=== PATIENT | female | born 1940 | race Caucasian/White ===

== ENCOUNTER 2017-07-31 08:02 | Inpatient (IN) | payer MEDICARE ==
[2017-07-29 10:28] LABS: BASOPHILS % (AUTO) 0.5 % (0-1); EOSINOPHILS # (AUTO) 0.2 X10'3 (0-0.9); EOSINOPHILS % (AUTO) 1.9 % (0-6); LYMPHOCYTES % (AUTO) 21.8 % (21-51); MEAN CORPUSCULAR HEMOGLOBIN 33.1 PG (27.0-31.0); MEAN CORPUSCULAR HGB CONC 34.5 % (33.0-36.5); MEAN CORPUSCULAR VOLUME 95.9 FL (78-98); MEAN PLATELET VOLUME 8.1 FL (7.4-10.4); MONOCYTES # (AUTO) 0.8 X10'3 (0-0.9); MONOCYTES % (AUTO) 8.5 % (2-12); NEUTROPHILS # (AUTO) 6.1 X10'3 (1.8-7.7); NEUTROPHILS % (AUTO) 67.3 % (42-75); PRE OP HEMATOCRIT 38.8 % (35.0-45.0); PRE OP HEMOGLOBIN 13.4 g/dL (12.0-16.0); PRE OP PLATELET COUNT 270 X10'3 (140-440); RED BLOOD COUNT 4.05 X10'6 (4.20-5.60); RED CELL DISTRIBUTION WIDTH 14.2 % (11.5-14.5)
[2017-07-29 10:33] LABS: CLARITY,URINE Clear (Clear); COLOR,URINE Yellow (Yellow); GLUCOSE, URINE Negative (Neg); KETONES,URINE Negative (Neg); LEUKOCYTE ESTERASE ,URINE Negative (Neg); NITRITES, URINE Negative (Neg); OCCULT BLOOD,URINE Negative (Neg); PROTEIN,URINE Negative (Neg); UROBILINOGEN,URINE 0.2 E.U/dL (0.2-1.0)
[2017-07-29 10:36] LABS: UA COLLECTION TYPE CLN CATCH MIDSTREAM
[2017-07-29 10:37] LABS: PRE OP INR 0.9 INR; PRE OP PROTIME 9.5 SECONDS (9.0-12.0)
[2017-07-29 10:44] LABS: ALBUMIN 3.5 G/DL (3.4-5.0); ALBUMIN/GLOBULIN RATIO 0.9 (1.1-1.5); ALKALINE PHOSPHATASE 77 IU/L (46-116); BLOOD UREA NITROGEN 16 MG/DL (7-18); BUN/CREATININE RATIO 14.8 (6.6-38.0); CALCIUM 9.3 MG/DL (8.5-10.1); CHLORIDE 102 MMOL/L (99-107); CREATININE 1.08 MG/DL (0.40-0.90); PRE OP ALT 22 U/L (30-65); PRE OP ANION GAP 9 (8-16); PRE OP AST 24 U/L (10-37); PRE OP BILIRUB, TOTAL 0.2 MG/DL (0.0-1.0); PRE OP GLUCOSE 92 MG/DL (70-104); PRE OP POTASSIUM 3.4 MMOL/L (3.4-5.1); PRE OP SODIUM 140 MMOL/L (135-145); TOTAL CARBON DIOXIDE 28.6 MMOL/L (24-32); TOTAL PROTEIN 7.2 G/DL (6.4-8.2); eGFR 49 ML/MIN
[2017-07-29 10:52] LABS: HEMOGLOBIN A1C 5.1 % (4.5-6.2)
[2017-07-31] VITALS (12 sets, daily range): BP systolic 80–140; BP diastolic 40–68
[~2017-07-31] VITALS: Ht 157.5 cm; Wt 52.8 kg
[2017-07-31] MEDS: mupirocin 2% ointment 22GM TP SCH ×2 (08:00→10:25)
[~2017-07-31 08:02] MED LIST: ALPR-624 PO; AMLO-93 PO; BIOT1TAB7 PO; FOLI0.4T2 PO; LACT1CAP65 PO; LORazepam 2 mg/ml vial IV ONE; MULT-38 PO; NITR0.4T48 SL; OMEG-15 PO; PRIMROSE PO; TRAM50TA2 PO; TURM500C4 PO; VANCOMYCIN INJ 1000 MG in NORMAL SALINE 250ml IV.SOLN IV ONE; cefazolin/dext.iso 2gm/50ml 50 ML IV ONE; dextrose 50%-water 50ml dispensing syringe IV PRN; famotidine 20mg tablet PO ONE; insulin regular, human 100 UNITS in normal saline 100ml IV soln 99 ML IV SCH; metoprolol tartrate 12.5mg (1/2 tablet) PO ONE; ringers solution, lacted 1,000 ML IV SCH
[2017-07-31] MEDS ORDERED: LORazepam 2 mg/ml vial ONE (09:53)
[2017-07-31] MEDS ORDERED: LIDOcaine 1% (10mg/ml) 2ml vial ONE (10:16)
[2017-07-31] MEDS ORDERED: SUFENTANIL CITRATE 50 MCG/ML 2ml ampule IV ONE (12:13)
[2017-07-31] MEDS ORDERED: protamine sulf. 10mg/ml inj. IV ONE (12:15)
[2017-07-31] MEDS ORDERED: NORepinephrine 1 mg/ml inj IV ONE (12:15)
[2017-07-31] MEDS ORDERED: nitroGLYCERIN in D5W 50mg/250ml (Tridil) infusion IV ONE (12:15)
[2017-07-31] MEDS ORDERED: isoflurane 100ml inhalation liquid IH ONE (12:15)
[2017-07-31] MEDS ORDERED: DOPamine/D5W 400mg/250ml bag IV ONE (12:15)
[2017-07-31] MEDS ORDERED: rocuronium 10mg/ml inj IV ONE (12:18)
[2017-07-31] MEDS ORDERED: papaverine 30 mg/ml 2ml inj. IA ONE (13:22)
[2017-07-31] MEDS ORDERED: heparin 10,000 units/1 ML INJ IJ ONE (13:23)
[2017-07-31 13:26] LABS: ABG BASE EXCESS -0.6 mmol/L (-2.0-3.0); ABG HCO3 23.7 mmol/L (22.0-26.0); ABG OXYGEN SATURATION 99.3 % (95-98); ABG PCO2 37.4 mmHg (35.0-45.0); ABG PH 7.419 (7.350-7.450); ABG PO2 234.7 mmHg (60.0-100.0); CL (ABG) 105 mmol/L (99-107); FCOHb 0.1 % (0.5-1.5); FO2Hb 99.2 % (94-100); GLUCOSE (ABG) 93 mg/dl (70-105); IONIZED CA (ABG) 1.16 mmol/L (1.03-1.32); K (ABG) 3.5 mmol/L (3.3-5.1); NA (ABG) 136 mmol/L (135-145); TOTAL HEMOGLOBIN 11.8 G/dl (12.0-16.0)
[2017-07-31] MEDS ORDERED: ipratropium/albuterol 3ml nebule IH PRN (13:35)
[2017-07-31 14:21] LABS: ABG HCO3 22.5 mmol/L (22.0-26.0); ABG OXYGEN SATURATION 99.5 % (95-98); ABG PCO2 32.5 mmHg (35.0-45.0); ABG PH 7.459 (7.350-7.450); ABG PO2 394.2 mmHg (60.0-100.0); CL (ABG) 103 mmol/L (99-107); FCOHb 0.7 % (0.5-1.5); FMetHb 0.3 % (0.3-1.12); FO2Hb 98.5 % (94-100); GLUCOSE (ABG) 105 mg/dl (70-105); IONIZED CA (ABG) 1.04 mmol/L (1.03-1.32); K (ABG) 5.1 mmol/L (3.3-5.1); NA (ABG) 133 mmol/L (135-145); TOTAL HEMOGLOBIN 7.9 G/dl (12.0-16.0)
[2017-07-31 14:36] LABS: ABG BASE EXCESS VENOUS 0.1 mmol/L; ABG HCO3 VENOUS 24.2 mmol/L; ABG PCO2 VENOUS 36.8 mmHg; ABG PO2 VENOUS 50.1 mmHg; CL (ABG) 103 mmol/L (99-107); FCOHb VENOUS 0.9 %; FHHb VENOUS 12.6 %; FMetHb VENOUS 0.3 %; FO2Hb VENOUS 86.2 %; GLUCOSE (ABG) 111 mg/dl (70-105); IONIZED CA (ABG) 1.04 mmol/L (1.03-1.32); NA (ABG) 135 mmol/L (135-145); TOTAL HEMOGLOBIN 7.8 G/dl (12.0-16.0)
[2017-07-31] MEDS ORDERED: potassium Cl 2 mEq/ml inj IV ONE (15:00)
[2017-07-31] MEDS ORDERED: albumin (human) 25% 100 ML IV solution IV ONE (15:00)
[2017-07-31] MEDS ORDERED: calcium chloride 100 MG/1 ML inj IV ONE (15:00)
[2017-07-31] MEDS ORDERED: phenylephrine 10mg/ml inj IV ONE (15:00)
[2017-07-31] MEDS ORDERED: LIDOcaine 2% (20 mg/ml) 5ml cardiac syringe ONE (15:00)
[2017-07-31] MEDS ORDERED: sodium bicarbonate (8.4%) 1 mEq/ml syringe ONE (15:00)
[2017-07-31] MEDS ORDERED: MAGNESIUM SULFATE 4 MEQ/ML (1gm/2ml) injection ONE (15:00)
[2017-07-31] MEDS ORDERED: heparin 10,000 units/1 ML INJ ONE (15:00)
[2017-07-31] MEDS ORDERED: heparin 1,000 units/ml 10ml inj ONE (15:00)
[2017-07-31] MEDS ORDERED: aminocaproic acid 250 MG/1 ML inj. ONE (15:00)
[2017-07-31 15:16] LABS: ABG BASE EXCESS 3.1 mmol/L (-2.0-3.0); ABG HCO3 25.9 mmol/L (22.0-26.0); ABG OXYGEN SATURATION 99.5 % (95-98); ABG PH 7.526 (7.350-7.450); ABG PO2 331.6 mmHg (60.0-100.0); CL (ABG) 102 mmol/L (99-107); FMetHb 0.3 % (0.3-1.12); FO2Hb 98.2 % (94-100); GLUCOSE (ABG) 115 mg/dl (70-105); IONIZED CA (ABG) 1.23 mmol/L (1.03-1.32); K (ABG) 4.6 mmol/L (3.3-5.1); NA (ABG) 135 mmol/L (135-145); TOTAL HEMOGLOBIN 7.4 G/dl (12.0-16.0)
[2017-07-31 15:56] LABS: ABG BASE EXCESS 0.2 mmol/L (-2.0-3.0); ABG HCO3 23.8 mmol/L (22.0-26.0); ABG OXYGEN SATURATION 98.7 % (95-98); ABG PCO2 34.2 mmHg (35.0-45.0); ABG PO2 203.4 mmHg (60.0-100.0); CL (ABG) 104 mmol/L (99-107); FCOHb 0.3 % (0.5-1.5); FMetHb 0.5 % (0.3-1.12); FO2Hb 97.9 % (94-100); GLUCOSE (ABG) 116 mg/dl (70-105); IONIZED CA (ABG) 1.26 mmol/L (1.03-1.32); K (ABG) 4.3 mmol/L (3.3-5.1); NA (ABG) 136 mmol/L (135-145); TOTAL HEMOGLOBIN 9.4 G/dl (12.0-16.0)
[2017-07-31] MEDS ORDERED: albumin (Human) 5% 250ml 250 ML IV PRN (16:20)
[2017-07-31] MEDS ORDERED: niCARDipine/sod cl 20mg/200ml 200 ML IV PRN (16:20)
[2017-07-31] MEDS ORDERED: HYDROcodone/acetaminophen 10/325mg tab PO PRN ×2 (16:20)
[2017-07-31] MEDS ORDERED: sodium phosphate inj. 30 MMOL in dextrose 5%-water 250 ML IV PRN (16:20)
[2017-07-31] MEDS ORDERED: dextrose 50%-water 50ml dispensing syringe IV PRN (16:20)
[2017-07-31] MEDS ORDERED: sodium phosphate inj. 15 MMOL in dextrose 5%-water 150 ML IV PRN (16:20)
[2017-07-31] MEDS ORDERED: ondansetron/PF 4mg/2ml inj IV PRN (16:20)
[2017-07-31] MEDS ORDERED: potassium Cl 20mEq/100mL bag 100 ML IV PRN ×2 (16:20)
[2017-07-31] MEDS ORDERED: morphine 4 MG/ML inj SYRINge IV PRN (16:20)
[2017-07-31] MEDS ORDERED: metoclopramide 5 mg/ml inj IV PRN (16:20)
[2017-07-31] MEDS ORDERED: DOPamine 400mg/D5W 250ml 250 ML IV PRN (16:20)
[2017-07-31] MEDS ORDERED: normal saline 250ml IV soln 250 ML IV PRN (16:20)
[2017-07-31] MEDS ORDERED: magnesium 2GM in 50ml NS 50 ML IV PRN (16:20)
[2017-07-31] MEDS ORDERED: nitroGLYCERIN-Tridil 50MG/D5W 250 ML IV PRN (16:20)
[2017-07-31] MEDS ORDERED: magnesium hydroxide 30ml (MOM) UD suspension PO PRN (16:20)
[2017-07-31] MEDS ORDERED: Neutra Phos packet PO PRN (16:20)
[2017-07-31] MEDS: insulin regular, human inj. 100 UNITS in normal saline 100ml IV soln 100 ML IV SCH ×4 (16:20→18:25)
[2017-07-31] MEDS ORDERED: magnesium 4gm in 100ml NS 100 ML IV PRN (16:20)
[2017-07-31 16:56] LABS: ABG BASE EXCESS -1.6 mmol/L (-2.0-3.0); ABG HCO3 22.8 mmol/L (22.0-26.0); ABG OXYGEN SATURATION 98.8 % (95-98); ABG PCO2 (T) 35.2 mmHg (32.0-45.0); ABG PH (T) 7.424 (7.350-7.450); ABG PO2 (T) 209.1 mmHg (83-108); FCOHb 0.3 % (0.5-1.5); FMetHb 0.3 % (0.3-1.12); FO2Hb 98.2 % (94-100); MINUTE VOLUME 6 L/min; PATIENT TEMPERATURE 35.8; PEEP 5 cm H2O; RESPIRATORY RATE 12 b/min; RESPIRATORY RATE (OBSERVED) 12 b/min; TIDAL VOLUME 450 mL; TOTAL HEMOGLOBIN 11.5 G/dl (12.0-16.0)
[2017-07-31 17:00] LABS: BASOPHILS % (AUTO) 0.2 % (0-1); EOSINOPHILS # (AUTO) 0.3 X10'3 (0-0.9); EOSINOPHILS % (AUTO) 1.7 % (0-6); HEMATOCRIT 31.2 % (35.0-45.0); HEMOGLOBIN 10.4 g/dl (12.0-16.0); LYMPHOCYTES # (AUTO) 1.2 X10'3 (1.1-4.8); MEAN CORPUSCULAR HEMOGLOBIN 32.3 PG (27.0-31.0); MEAN CORPUSCULAR HGB CONC 33.4 % (33.0-36.5); MEAN CORPUSCULAR VOLUME 96.6 FL (78-98); MEAN PLATELET VOLUME 7.9 FL (7.4-10.4); MONOCYTES # (AUTO) 0.9 X10'3 (0-0.9); MONOCYTES % (AUTO) 5.2 % (2-12); NEUTROPHILS # (AUTO) 14.9 X10'3 (1.8-7.7); NEUTROPHILS % (AUTO) 85.9 % (42-75); PLATELET COUNT 154 X10'3 (140-440); RED BLOOD COUNT 3.22 X10'6 (4.20-5.60); RED CELL DISTRIBUTION WIDTH 14.1 % (11.5-14.5); WHITE BLOOD COUNT 17.4 X10'3 (4.5-11.0)
[2017-07-31] MEDS: sodium chloride 0.45% 1,000 ML IV SCH (17:06)
[2017-07-31 17:12] LABS: INR 1.1 INR; PARTIAL THROMBOPLASTIN TIME 28 SECONDS (22-32); PROTHROMBIN TIME 11.4 SECONDS (9.0-12.0)
[2017-07-31 17:13] LABS: ALANINE AMINOTRANSFERASE 25 U/L (12-78); ALBUMIN 3.3 G/DL (3.4-5.0); ALBUMIN/GLOBULIN RATIO 1.4 (1.1-1.5); ALKALINE PHOSPHATASE 45 IU/L (46-116); ANION GAP 13 (8-16); ASPARTATE AMINO TRANSFERASE 26 U/L (10-37); BILIRUBIN,TOTAL 0.7 MG/DL (0.1-1.0); BLOOD UREA NITROGEN 27 MG/DL (7-18); CHLORIDE 108 MMOL/L (99-107); CREATININE 0.93 MG/DL (0.40-0.90); GLUCOSE 126 MG/DL (70-104); PHOSPHORUS 2.4 MG/DL (2.3-4.5); POTASSIUM 3.7 MMOL/L (3.5-5.1); SODIUM 145 MMOL/L (135-145); TOTAL CARBON DIOXIDE 24.4 MMOL/L (24-32); TOTAL PROTEIN 5.7 G/DL (6.4-8.2); eGFR 59 ML/MIN
[2017-07-31] MEDS: insulin Lispro (HumaLOG) vial - multi-dose SQ SCH (17:43)
[2017-07-31] MEDS: morphine 4 MG/ML inj SYRINge IV PRN ×2 (18:24→19:29)
[2017-07-31] MEDS ORDERED: NORepinephrine 8mg/ 250ml NS 250 ML IV PRN (18:58)
[2017-07-31] MEDS: mupirocin 2% ointment 22GM NS SCH (19:35)
[2017-07-31] MEDS: docusate sod 100mg capsule PO SCH (19:35)
[2017-07-31] MEDS: vancomycin/NS 1 GM ADD-VANTAGE 250 ML IV SCH (19:35)
[2017-07-31] MEDS: potassium Cl 20mEq/100mL bag 100 ML IV PRN (21:08)
[2017-07-31 23:29] LABS: BASOPHILS % (AUTO) 0 % (0-1); EOSINOPHILS # (AUTO) 0.3 X10'3 (0-0.9); EOSINOPHILS % (AUTO) 1.6 % (0-6); HEMATOCRIT 30.6 % (35.0-45.0); HEMOGLOBIN 10.5 g/dl (12.0-16.0); LYMPHOCYTES # (AUTO) 0.4 X10'3 (1.1-4.8); LYMPHOCYTES % (AUTO) 2.4 % (21-51); MEAN CORPUSCULAR HEMOGLOBIN 32.4 PG (27.0-31.0); MEAN CORPUSCULAR HGB CONC 34.4 % (33.0-36.5); MEAN CORPUSCULAR VOLUME 94.3 FL (78-98); MEAN PLATELET VOLUME 8.1 FL (7.4-10.4); MONOCYTES % (AUTO) 5.6 % (2-12); NEUTROPHILS # (AUTO) 15.9 X10'3 (1.8-7.7); NEUTROPHILS % (AUTO) 90.4 % (42-75); PLATELET COUNT 166 X10'3 (140-440); RED BLOOD COUNT 3.25 X10'6 (4.20-5.60); RED CELL DISTRIBUTION WIDTH 13.8 % (11.5-14.5); WHITE BLOOD COUNT 17.6 X10'3 (4.5-11.0)
[2017-07-31 23:37] LABS: ALBUMIN 3.7 G/DL (3.4-5.0); ANION GAP 11 (8-16); BLOOD UREA NITROGEN 29 MG/DL (7-18); BUN/CREATININE RATIO 26.1 (6.6-38.0); CALCIUM 8.6 MG/DL (8.5-10.1); CHLORIDE 112 MMOL/L (99-107); CREATININE 1.11 MG/DL (0.40-0.90); GLUCOSE 152 MG/DL (70-104); POTASSIUM 3.7 MMOL/L (3.5-5.1); SODIUM 147 MMOL/L (135-145); eGFR 48 ML/MIN
[2017-08-01] VITALS (24 sets, daily range): BP systolic 116–153; BP diastolic 47–68
[2017-08-01] MEDS: cefazolin 1gm/NS 100mL 100 ML IV SCH ×3 (00:47→17:09)
[2017-08-01] MEDS: morphine 4 MG/ML inj SYRINge IV PRN ×2 (00:47→04:29)
[2017-08-01] MEDS: insulin regular, human inj. 100 UNITS in normal saline 100ml IV soln 100 ML IV SCH ×2 (01:09)
[2017-08-01] MEDS: potassium Cl 20mEq/100mL bag 100 ML IV PRN ×2 (01:40→02:23)
[2017-08-01 04:29] LABS: BASOPHILS % (AUTO) 0 % (0-1); EOSINOPHILS % (AUTO) 0 % (0-6); HEMOGLOBIN 10.5 g/dl (12.0-16.0); LYMPHOCYTES # (AUTO) 0.5 X10'3 (1.1-4.8); LYMPHOCYTES % (AUTO) 3.9 % (21-51); MEAN CORPUSCULAR HEMOGLOBIN 32.1 PG (27.0-31.0); MEAN CORPUSCULAR HGB CONC 33.9 % (33.0-36.5); MEAN CORPUSCULAR VOLUME 94.7 FL (78-98); MEAN PLATELET VOLUME 8.5 FL (7.4-10.4); MONOCYTES # (AUTO) 0.7 X10'3 (0-0.9); MONOCYTES % (AUTO) 5.1 % (2-12); NEUTROPHILS # (AUTO) 12.8 X10'3 (1.8-7.7); PLATELET COUNT 170 X10'3 (140-440); RED BLOOD COUNT 3.27 X10'6 (4.20-5.60); RED CELL DISTRIBUTION WIDTH 14.2 % (11.5-14.5); WHITE BLOOD COUNT 14.1 X10'3 (4.5-11.0)
[2017-08-01 04:31] LABS: ABG BASE EXCESS -5.1 mmol/L (-2.0-3.0); ABG HCO3 20.5 mmol/L (22.0-26.0); ABG OXYGEN SATURATION 97.3 % (95-98); ABG PCO2 (T) 39.2 mmHg (32.0-45.0); ABG PH (T) 7.334 (7.350-7.450); ABG PO2 (T) 109.6 mmHg (83-108); FCOHb 0.3 % (0.5-1.5); FMetHb 0.3 % (0.3-1.12); FO2Hb 96.7 % (94-100); MINUTE VOLUME 5 L/min; PATIENT TEMPERATURE 36.4; PEEP 5 cm H2O; RESPIRATORY RATE 8 b/min; RESPIRATORY RATE (OBSERVED) 10 b/min; TIDAL VOLUME 450 mL; TOTAL HEMOGLOBIN 11.6 G/dl (12.0-16.0)
[2017-08-01 04:40] LABS: PARTIAL THROMBOPLASTIN TIME 31 SECONDS (22-32); PROTHROMBIN TIME 10.3 SECONDS (9.0-12.0)
[2017-08-01 04:44] LABS: ALANINE AMINOTRANSFERASE 35 U/L (12-78); ALBUMIN 3.7 G/DL (3.4-5.0); ALBUMIN/GLOBULIN RATIO 1.4 (1.1-1.5); ALKALINE PHOSPHATASE 48 IU/L (46-116); ANION GAP 12 (8-16); ASPARTATE AMINO TRANSFERASE 49 U/L (10-37); BILIRUBIN,TOTAL 0.8 MG/DL (0.1-1.0); BLOOD UREA NITROGEN 29 MG/DL (7-18); BUN/CREATININE RATIO 26.4 (6.6-38.0); CALCIUM 8.6 MG/DL (8.5-10.1); CHLORIDE 112 MMOL/L (99-107); GLUCOSE 145 MG/DL (70-104); MAGNESIUM 2.6 MG/DL (1.5-2.4); POTASSIUM 4.8 MMOL/L (3.5-5.1); SODIUM 147 MMOL/L (135-145); TOTAL CARBON DIOXIDE 23.4 MMOL/L (24-32); TOTAL PROTEIN 6.4 G/DL (6.4-8.2); eGFR 48 ML/MIN
[2017-08-01 05:46] LABS: ACTIVATED CLOTTING TIME 136 SEC (101-148)
[2017-08-01 05:46] LABS: ACT @ 1.70 U 326 SEC (193-297); ACT @ 2.84 U 453 SEC (260-420); BASELINE ACT 162 SEC (101-148); PATIENT WEIGHT 54.0k KG
[2017-08-01] MEDS: pantoprazole 40mg Tablet.DR PO SCH (07:30)
[2017-08-01] MEDS ORDERED: aspirin 325mg tablet, delayed-release (Ecotrin) PO SCH (08:00)
[2017-08-01] MEDS: docusate sod 100mg capsule PO SCH ×3 (08:00→20:50)
[2017-08-01] MEDS ORDERED: atorvastatin 10mg tablet PO SCH (08:00)
[2017-08-01] MEDS: insulin Lispro (HumaLOG) vial - multi-dose SQ SCH ×3 (09:00→17:45)
[2017-08-01] MEDS: metoprolol tartrate 12.5mg (1/2 tablet) PO SCH ×2 (09:22→20:49)
[2017-08-01] MEDS: lactobacillus rhamnosus 10,000 MMU CELLS/CAPSULE PO SCH (09:22)
[2017-08-01] MEDS: folic acid 0.4mg tablet PO SCH (09:22)
[2017-08-01] MEDS: multivitamins, therapeutics tablet PO SCH (09:22)
[2017-08-01] MEDS: mupirocin 2% ointment 22GM NS SCH ×2 (09:26→20:49)
[2017-08-01] MEDS: vancomycin/NS 1 GM ADD-VANTAGE 250 ML IV SCH ×2 (09:26→19:39)
[2017-08-01] MEDS ORDERED: aspirin 81mg tab.chew PO ONE (15:35)
[2017-08-01] MEDS ORDERED: flumazenil 0.1 mg/ml inj. IV ONE ×2 (15:35→17:10)
[2017-08-01] MEDS ORDERED: flumazenil 0.1 mg/ml inj. IV PRN (18:20)
[2017-08-01] MEDS: acetaminophen 325mg tablet PO PRN (22:15)
[2017-08-02] VITALS (23 sets, daily range): BP systolic 99–143; BP diastolic 40–68
[2017-08-02] MEDS: cefazolin 1gm/NS 100mL 100 ML IV SCH ×2 (00:17→07:26)
[2017-08-02 05:48] LABS: BASOPHILS % (AUTO) 0 % (0-1); EOSINOPHILS # (AUTO) 0.4 X10'3 (0-0.9); EOSINOPHILS % (AUTO) 1.8 % (0-6); HEMATOCRIT 26.3 % (35.0-45.0); HEMOGLOBIN 8.9 g/dl (12.0-16.0); LYMPHOCYTES # (AUTO) 1.3 X10'3 (1.1-4.8); LYMPHOCYTES % (AUTO) 6.3 % (21-51); MEAN CORPUSCULAR HEMOGLOBIN 32.6 PG (27.0-31.0); MEAN CORPUSCULAR HGB CONC 33.7 % (33.0-36.5); MEAN CORPUSCULAR VOLUME 96.9 FL (78-98); MEAN PLATELET VOLUME 8.9 FL (7.4-10.4); MONOCYTES # (AUTO) 1.8 X10'3 (0-0.9); MONOCYTES % (AUTO) 8.3 % (2-12); NEUTROPHILS # (AUTO) 17.6 X10'3 (1.8-7.7); NEUTROPHILS % (AUTO) 83.6 % (42-75); PLATELET COUNT 135 X10'3 (140-440); RED BLOOD COUNT 2.71 X10'6 (4.20-5.60)
[2017-08-02 06:25] LABS: ALBUMIN 2.9 G/DL (3.4-5.0); ANION GAP 12 (8-16); BLOOD UREA NITROGEN 37 MG/DL (7-18); BUN/CREATININE RATIO 38.5 (6.6-38.0); CALCIUM 8.1 MG/DL (8.5-10.1); CHLORIDE 112 MMOL/L (99-107); CREATININE 0.96 MG/DL (0.40-0.90); GLUCOSE 103 MG/DL (70-104); MAGNESIUM 2.1 MG/DL (1.5-2.4); POTASSIUM 4.6 MMOL/L (3.5-5.1); SODIUM 145 MMOL/L (135-145); TOTAL CARBON DIOXIDE 21.5 MMOL/L (24-32); eGFR 57 ML/MIN
[2017-08-02] MEDS: lactobacillus rhamnosus 10,000 MMU CELLS/CAPSULE PO SCH (07:24)
[2017-08-02] MEDS: metoprolol tartrate 12.5mg (1/2 tablet) PO SCH ×2 (07:24→20:37)
[2017-08-02] MEDS: aspirin 81mg tab.chew PO SCH (07:25)
[2017-08-02] MEDS: pantoprazole 40mg Tablet.DR PO SCH (07:25)
[2017-08-02] MEDS: multivitamins, therapeutics tablet PO SCH (07:25)
[2017-08-02] MEDS: folic acid 0.4mg tablet PO SCH (07:25)
[2017-08-02] MEDS: mupirocin 2% ointment 22GM NS SCH (07:26)
[2017-08-02] MEDS: ketorolac tromethamine 15mg/ml inj. IV SCH ×3 (07:26→20:39)
[2017-08-02] MEDS: docusate sod 100mg capsule PO SCH ×2 (07:26→20:00)
[2017-08-02] MEDS: acetaminophen 325mg tablet PO PRN ×3 (08:30→20:40)
[2017-08-02] MEDS: insulin Lispro (HumaLOG) vial - multi-dose SQ SCH ×3 (09:00→18:00)
[2017-08-02] MEDS: sodium chloride 0.45% 1,000 ML IV SCH (16:02)
[2017-08-02] MEDS: insulin regular, human inj. 100 UNITS in normal saline 100ml IV soln 100 ML IV SCH ×2 (16:02)
[2017-08-02] MEDS: ALPRAZolam 0.5mg tablet PO PRN (21:37)
[2017-08-03] VITALS (15 sets, daily range): BP systolic 94–148; BP diastolic 50–68
[2017-08-03] MEDS: ketorolac tromethamine 15mg/ml inj. IV SCH (04:43)
[2017-08-03 06:20] LABS: BASOPHILS % (AUTO) 0.2 % (0-1); EOSINOPHILS # (AUTO) 0.2 X10'3 (0-0.9); EOSINOPHILS % (AUTO) 1.6 % (0-6); HEMATOCRIT 24.9 % (35.0-45.0); HEMOGLOBIN 8.6 g/dl (12.0-16.0); LYMPHOCYTES # (AUTO) 1.7 X10'3 (1.1-4.8); LYMPHOCYTES % (AUTO) 14.5 % (21-51); MEAN CORPUSCULAR HEMOGLOBIN 33.1 PG (27.0-31.0); MEAN CORPUSCULAR HGB CONC 34.7 % (33.0-36.5); MEAN CORPUSCULAR VOLUME 95.5 FL (78-98); MEAN PLATELET VOLUME 9.4 FL (7.4-10.4); MONOCYTES # (AUTO) 1.1 X10'3 (0-0.9); MONOCYTES % (AUTO) 8.9 % (2-12); NEUTROPHILS % (AUTO) 74.8 % (42-75); PLATELET COUNT 126 X10'3 (140-440); RED CELL DISTRIBUTION WIDTH 14.3 % (11.5-14.5)
[2017-08-03 06:44] LABS: ALBUMIN 2.8 G/DL (3.4-5.0); ANION GAP 11 (8-16); BLOOD UREA NITROGEN 37 MG/DL (7-18); BUN/CREATININE RATIO 41.1 (6.6-38.0); CALCIUM 8.2 MG/DL (8.5-10.1); CHLORIDE 109 MMOL/L (99-107); GLUCOSE 92 MG/DL (70-104); PHOSPHORUS 1.8 MG/DL (2.3-4.5); POTASSIUM 4.2 MMOL/L (3.5-5.1); SODIUM 145 MMOL/L (135-145); TOTAL CARBON DIOXIDE 24.9 MMOL/L (24-32); eGFR 61 ML/MIN
[2017-08-03] MEDS: docusate sod 100mg capsule PO SCH ×2 (07:29→19:34)
[2017-08-03] MEDS: folic acid 0.4mg tablet PO SCH (07:33)
[2017-08-03] MEDS: multivitamins, therapeutics tablet PO SCH (07:33)
[2017-08-03] MEDS: lactobacillus rhamnosus 10,000 MMU CELLS/CAPSULE PO SCH (07:34)
[2017-08-03] MEDS: aspirin 81mg tab.chew PO SCH (07:34)
[2017-08-03] MEDS: pantoprazole 40mg Tablet.DR PO SCH (07:34)
[2017-08-03] MEDS: metoprolol tartrate 12.5mg (1/2 tablet) PO SCH ×2 (07:34→19:47)
[2017-08-03] MEDS: insulin Lispro (HumaLOG) vial - multi-dose SQ SCH (08:35)
[2017-08-03] MEDS ORDERED: magnesium 4gm in 100ml NS 100 ML IV PRN (09:30)
[2017-08-03] MEDS ORDERED: magnesium 2GM in 50ml NS 50 ML IV PRN (09:30)
[2017-08-03] MEDS ORDERED: potassium Cl 40MEQ/NS 500ml 500 ML IV PRN ×2 (09:30)
[2017-08-03] MEDS ORDERED: potassium Cl 20 mEq SR tablet PO PRN ×2 (09:30)
[2017-08-03] MEDS ORDERED: magnesium Cl slow-release 64mg tablet PO PRN (09:30)
[2017-08-03] MEDS: potassium Cl 20 mEq SR tablet PO SCH (19:35)
[2017-08-03] MEDS: ALPRAZolam 0.5mg tablet PO PRN (19:47)
[2017-08-03] MEDS: magnesium Cl slow-release 64mg tablet PO SCH (19:48)
[2017-08-04 02:00] VITALS: BP 128/62
[2017-08-04 06:04] LABS: BASOPHILS % (AUTO) 0.3 % (0-1); EOSINOPHILS # (AUTO) 0.2 X10'3 (0-0.9); EOSINOPHILS % (AUTO) 2.8 % (0-6); HEMATOCRIT 25.3 % (35.0-45.0); HEMOGLOBIN 8.7 g/dl (12.0-16.0); LYMPHOCYTES # (AUTO) 1.6 X10'3 (1.1-4.8); MEAN CORPUSCULAR HEMOGLOBIN 32.9 PG (27.0-31.0); MEAN CORPUSCULAR HGB CONC 34.3 % (33.0-36.5); MEAN CORPUSCULAR VOLUME 96.1 FL (78-98); MEAN PLATELET VOLUME 9.3 FL (7.4-10.4); MONOCYTES # (AUTO) 0.9 X10'3 (0-0.9); MONOCYTES % (AUTO) 10.4 % (2-12); NEUTROPHILS # (AUTO) 6.1 X10'3 (1.8-7.7); NEUTROPHILS % (AUTO) 68.5 % (42-75); PLATELET COUNT 156 X10'3 (140-440); RED BLOOD COUNT 2.63 X10'6 (4.20-5.60); RED CELL DISTRIBUTION WIDTH 14.2 % (11.5-14.5)
[2017-08-04 06:16] LABS: ALBUMIN 2.6 G/DL (3.4-5.0); ANION GAP 9 (8-16); BLOOD UREA NITROGEN 25 MG/DL (7-18); BUN/CREATININE RATIO 30.5 (6.6-38.0); CALCIUM 8.1 MG/DL (8.5-10.1); CHLORIDE 110 MMOL/L (99-107); CREATININE 0.82 MG/DL (0.40-0.90); GLUCOSE 93 MG/DL (70-104); MAGNESIUM 1.8 MG/DL (1.5-2.4); POTASSIUM 3.7 MMOL/L (3.5-5.1); SODIUM 145 MMOL/L (135-145); TOTAL CARBON DIOXIDE 26.1 MMOL/L (24-32); eGFR 68 ML/MIN
[2017-08-04 07:00] VITALS: BP 143/78
[2017-08-04] MEDS: metoprolol tartrate 12.5mg (1/2 tablet) PO SCH ×2 (07:22→19:33)
[2017-08-04] MEDS: folic acid 0.4mg tablet PO SCH (07:23)
[2017-08-04] MEDS: acetaminophen 325mg tablet PO PRN ×2 (07:24→19:37)
[2017-08-04] MEDS: magnesium Cl slow-release 64mg tablet PO SCH ×2 (07:24→19:33)
[2017-08-04] MEDS: potassium Cl 20 mEq SR tablet PO SCH ×2 (07:25→19:32)
[2017-08-04] MEDS: pantoprazole 40mg Tablet.DR PO SCH (07:25)
[2017-08-04] MEDS: aspirin 81mg tab.chew PO SCH (07:25)
[2017-08-04] MEDS: multivitamins, therapeutics tablet PO SCH (07:25)
[2017-08-04] MEDS: docusate sod 100mg capsule PO SCH ×2 (08:00→20:00)
[2017-08-04] MEDS: K and/or MAG REPLACEMENT MC SCH (08:00)
[2017-08-04 11:00] VITALS: BP 110/48
[2017-08-04] MEDS: Protein Shake (high protein) 240ml (8oz) cup PO SCH ×2 (13:00→18:00)
[2017-08-04 15:00] VITALS: BP 118/50
[2017-08-04 19:00] VITALS: BP 149/71
[2017-08-04] MEDS: ALPRAZolam 0.5mg tablet PO PRN (20:34)
[2017-08-04 23:00] VITALS: BP 123/66
[2017-08-05 03:00] VITALS: BP 120/57
[2017-08-05 05:16] LABS: BASOPHILS % (AUTO) 0.5 % (0-1); EOSINOPHILS # (AUTO) 0.4 X10'3 (0-0.9); EOSINOPHILS % (AUTO) 5.5 % (0-6); HEMATOCRIT 24.7 % (35.0-45.0); HEMOGLOBIN 8.3 g/dl (12.0-16.0); LYMPHOCYTES # (AUTO) 1.8 X10'3 (1.1-4.8); LYMPHOCYTES % (AUTO) 24.1 % (21-51); MEAN CORPUSCULAR HEMOGLOBIN 32.6 PG (27.0-31.0); MEAN CORPUSCULAR HGB CONC 33.8 % (33.0-36.5); MEAN CORPUSCULAR VOLUME 96.3 FL (78-98); MEAN PLATELET VOLUME 8.7 FL (7.4-10.4); MONOCYTES # (AUTO) 0.9 X10'3 (0-0.9); MONOCYTES % (AUTO) 12.3 % (2-12); NEUTROPHILS # (AUTO) 4.3 X10'3 (1.8-7.7); NEUTROPHILS % (AUTO) 57.6 % (42-75); PLATELET COUNT 196 X10'3 (140-440); RED BLOOD COUNT 2.56 X10'6 (4.20-5.60); RED CELL DISTRIBUTION WIDTH 14.1 % (11.5-14.5); WHITE BLOOD COUNT 7.5 X10'3 (4.5-11.0)
[2017-08-05 05:38] LABS: ALBUMIN 2.5 G/DL (3.4-5.0); ANION GAP 9 (8-16); BLOOD UREA NITROGEN 23 MG/DL (7-18); BUN/CREATININE RATIO 24.7 (6.6-38.0); CALCIUM 8.2 MG/DL (8.5-10.1); CHLORIDE 112 MMOL/L (99-107); CREATININE 0.93 MG/DL (0.40-0.90); GLUCOSE 95 MG/DL (70-104); MAGNESIUM 1.7 MG/DL (1.5-2.4); POTASSIUM 4.1 MMOL/L (3.5-5.1); SODIUM 144 MMOL/L (135-145); TOTAL CARBON DIOXIDE 23.4 MMOL/L (24-32); eGFR 59 ML/MIN
[2017-08-05 07:00] VITALS: BP 129/63
[2017-08-05] MEDS: folic acid 0.4mg tablet PO SCH (07:11)
[2017-08-05] MEDS: multivitamins, therapeutics tablet PO SCH (07:11)
[2017-08-05] MEDS: metoprolol tartrate 12.5mg (1/2 tablet) PO SCH (07:12)
[2017-08-05] MEDS: magnesium Cl slow-release 64mg tablet PO SCH (07:13)
[2017-08-05] MEDS: pantoprazole 40mg Tablet.DR PO SCH (07:13)
[2017-08-05] MEDS: aspirin 81mg tab.chew PO SCH (07:14)
[2017-08-05] MEDS: Protein Shake (high protein) 240ml (8oz) cup PO SCH (08:00)
[2017-08-05] MEDS: potassium Cl 20 mEq SR tablet PO SCH (08:00)
[2017-08-05] MEDS: docusate sod 100mg capsule PO SCH (08:00)
[2017-08-05] MEDS: K and/or MAG REPLACEMENT MC SCH (08:00)
[2017-08-05] MEDS ORDERED: ASPI-1265 PO (09:27)
[2017-08-05] MEDS ORDERED: HYDR-3972 PO (09:27)
[2017-08-05] MEDS ORDERED: METO25TA6 PO (09:27)
== END 2017-08-05 11:30 | disposition home health service (06) | DRG 236 ==
LOC: PAS IN 09:17 → EDSTATUS 12:30 → ICU 2S 16:25 → PCU 3S 08-03 11:00
PROVIDERS: ADMIT Thoracic Surgery (Cardiothoracic Vascular Surgery); ATTEND Thoracic Surgery (Cardiothoracic Vascular Surgery)
PROC: 021209W Bypass Coronary Artery, Three Arteries from Aorta with Autologous Venous Tissue, Open Approach (ICD-10-PCS; 2017-07-31)
PROC: 06BP4ZZ Excision of Right Saphenous Vein, Percutaneous Endoscopic Approach (ICD-10-PCS; 2017-07-31)
PROC: B24BZZ4 Ultrasonography of Heart with Aorta, Transesophageal (ICD-10-PCS; 2017-07-31)
PROC: 5A1221Z Performance of Cardiac Output, Continuous (ICD-10-PCS; 2017-07-31)
PROC: 02HP32Z Insertion of Monitoring Device into Pulmonary Trunk, Percutaneous Approach (ICD-10-PCS; 2017-07-31)
PROC: 4A133B3 Monitoring of Arterial Pressure, Pulmonary, Percutaneous Approach (ICD-10-PCS; 2017-07-31)
PROC: 4A1239Z Monitoring of Cardiac Output, Percutaneous Approach (ICD-10-PCS; 2017-07-31)
PROC: 02HV33Z Insertion of Infusion Device into Superior Vena Cava, Percutaneous Approach (ICD-10-PCS; 2017-07-31)
PROC: 02100Z9 Bypass Coronary Artery, One Artery from Left Internal Mammary, Open Approach (ICD-10-PCS; principal; 2017-07-31 12:15)
DX: I25.10 Atherosclerotic heart disease of native coronary artery without angina pectoris (principal); E78.5 Hyperlipidemia, unspecified; F41.9 Anxiety disorder, unspecified; M54.9 Dorsalgia, unspecified; K21.9 Gastro-esophageal reflux disease without esophagitis; G89.29 Other chronic pain; I10 Essential (primary) hypertension; M35.3 Polymyalgia rheumatica; Z90.49 Acquired absence of other specified parts of digestive tract; Z90.710 Acquired absence of both cervix and uterus; Z88.8 Allergy status to other drugs, medicaments and biological substances; Z85.42 Personal history of malignant neoplasm of other parts of uterus; Z87.891 Personal history of nicotine dependence; Z80.3 Family history of malignant neoplasm of breast; Z82.49 Family history of ischemic heart disease and other diseases of the circulatory system
CPT/HCPCS: 0232T; 93312; 93325; 36415; 36600; 71045; 71046; 80048; 80053; 81003; 82330; 82435; 82800; 82803; 82947; 82948; 83036; 83735; 84100; 84132; 84295; 85018; 85025; 85347; 85384; 85610; 85730; 86885; 86900; 86901; 86920; 87070; 93005; 93880; 93971; 94002; 94003; 94010; 94760; 97110; 97116; 97161; 97530; A6213; A6255; A6257; A6258; A6402; A6449; A7000; A7048; C1751; J0690; J1265; J1644; J1815; J1885; J2001; J2060; J2150; J2270; J2370; J2440; J2720; J3370; J3480; J3490; J7030; J7120; P9045; P9047